=== PATIENT | male | born 1975 | race Caucasian/White ===

== ENCOUNTER 2024-01-24 11:15 | Emergency (ER) | payer MEDICAID ==
[~2024-01-24] VITALS: Ht 185.4 cm; Wt 77.3 kg
[2024-01-24 11:16] VITALS: TEMP 98.4
[2024-01-24] MEDS: LIDOcaine 1% W/epiNEPHrine 1:100,000 20ml vial SQ STA (12:17)
[2024-01-24 14:10] VITALS: BP 123/79; PULSE 80; RESP 16; O2SAT 98
== END 2024-01-24 14:10 | disposition home or self-care (01) ==
LOC: ER 11:15
DX: S61.412A Laceration without foreign body of left hand, initial encounter (principal); W45.8XXA Other foreign body or object entering through skin, initial encounter; Y93.89 Activity, other specified; Y92.89 Other specified places as the place of occurrence of the external cause; Y99.8 Other external cause status
CPT/HCPCS: 12002; 73130; 99283; A6222; A6449

== ENCOUNTER 2024-02-07 18:56 | Emergency (ER) | payer MEDICAID ==
[~2024-02-07] VITALS: Ht 185.4 cm; Wt 76.0 kg
[2024-02-07 19:00] VITALS: BP 146/86; PULSE 88; RESP 16; TEMP 97.7; O2SAT 98
== END 2024-02-07 23:00 | disposition left against medical advice (07) ==
LOC: ER 18:57
DX: S61.412D Laceration without foreign body of left hand, subsequent encounter (principal); Z53.21 Procedure and treatment not carried out due to patient leaving prior to being seen by health care provider; Z48.02 Encounter for removal of sutures; X58.XXXD Exposure to other specified factors, subsequent encounter